=== PATIENT | male | born 1960 | race Caucasian/White ===

== ENCOUNTER 2024-11-01 10:21 | Inpatient (IN) | payer BC, SELFPAY ==
[2024-11-01] VITALS (22 sets, daily range): BP systolic 127–180; BP diastolic 67–134; BMI 39.1; BMI 39.3
[2024-11-01] MEDS: ASPIRIN 325 MG PO (07:52)
--- NOTE | 2024-11-01 08:04 | ED.GENMED ---
History of Present Illness
<Chente Howell Jr., PA-C - Last Filed: 11/01/24 09:56>
General
Chief Complaint: Chest Pain
Source: patient
Exam Limitations: none
Time Seen by Provider: 11/01/24 07:27
Nursing documentation reviewed up to this point in time: agreed with
History of Present Illness
History of Present Illness:
64-year-old male past medical history of coronary artery disease status post stent roughly 30 years ago when he was in his mid 30s, diabetes and hypertension presenting to the emergency department today with concerns of central chest pressure that
seems to be worse when he lays down and with exertion does have associated nausea but no associated shortness of breath no diaphoresis. He claims that the symptoms feel similar to when he had a heart attack 30 years ago. Denies any recent trauma
surgery immobilization, history of blood clots.
Past History
<Chente Howell Jr., PA-C - Last Filed: 11/01/24 09:56>
Past History
ED Past Medical History: None
ED Past Surgical History: None
Review of Systems
<Chente Howell Jr., PA-C - Last Filed: 11/01/24 09:56>
Review of Systems
Allergies reviewed?: Yes
All Other Systems: ROS reviewed and negative except as documented in HPI and ROS
Phy Exam
<Chente Howell Jr., PA-C - Last Filed: 11/01/24 09:56>
Physical Exam
Physical Exam:
GENERAL: Alert , in no apparent distress
EYE: pupils equal and reactive
NECK: Supple, no significant adenopathy.
ENT: o/p clr, mmm.
CARDIAC: Regular rate and rhythm .
LUNGS: Clear breath sounds bilaterally, no acute respiratory distress, no wheezes/rales/rhonchi
ABDOMEN: Soft, without focal tenderness, no r/g, no cvat
NEUROLOGICAL: Alert and oriented, no focal neuro deficits
SKIN: Warm and dry, skin intact.
MUSCULOSKELETAL: No edema, well perfused.
PSYCH: Normal and appropriate interaction.
Scores
<Chente Howell Jr., PA-C - Last Filed: 11/01/24 09:56>
Heart Score for Chest Pain Patients
STEMI patient?: No
History: Highly Suspicious
ECG: Significant ST-Depression
Age: >45 - <65 years
Risk Factors: >/= 3 Risk Factors or History of CAD
Troponin: >1 - <3 x Normal Limit
Heart Score for Chest Pain Patients: 8
Heart Score Risk: 72.7 % MACE over next 6 weeks
Course
<Chente Howell Jr., PA-C - Last Filed: 11/01/24 09:56>
Orders/Labs/Results
Orders:
Orders
11/01/24 07:08
EKG [Electrocardiogram (*1)] Urgent
Reason for Study: Chest Pain
EKG- Treatment ONCE
11/01/24 07:35
Aspirin 325 mg PO NOW STA
11/01/24 07:36
CR Chest - 2 Views Urgent
Comment:
Reason For Exam: CP
11/01/24 07:47
Complete Blood Count/With Diff Urgent
Comprehensive Metabolic Panel Urgent
Magnesium Urgent
Troponin I Urgent
11/01/24 08:38
Heparin 4,000 units IV NOW STA
Nursing to Place Non Medication Order As Directed
Physician Order: PTT 6 hours after initial start of Heparin infusion
Above order entered?: Yes
11/01/24 08:39
Electrocardiogram (*1) Stat
Comment: ALREADY DONE IN ED
11/01/24 08:44
PTT Urgent
Comment: Obtain baseline before beginning heparin infusion if not already collected
11/01/24 08:45
Heparin 62075 Units/250 ml 25,000 units in 250 ml IV PER PROTOCOL
Weight to be used for heparin protocol in kilograms (kg):: 119.9
Protocol:: Cardiac Tx/Acute Coronary
PTT Goal Range to be used:: PTT 73 to 111 seconds
Order type:: Initial
INITIAL Infusion Dose (UNITS/KG/hr) & then follow protocol:: 15 units/kg/hr
Infusion Dose in UNITS/hr & then follow protocol (UNITS/hr):: 1,500
INFUSION RATE in mL/hr & then follow protocol (mL/hr):: 15
PTT less than or equal to 64 seconds:: Increase rate by 200 units/hr (+ 2 mL/hr)
PTT 64.1 to 72.9 seconds:: Increase rate by 100 units/hr (+ 1 mL/hr)
PTT 73 to 111 seconds:: Target Range. No change in rate.
PTT 111.1 to 130.9 seconds:: Decrease rate by 100 units/hr (- 1 mL/hr)
PTT 131 to 199.9 seconds:: HOLD for 1 hr. Then decrease rate by 200 units/hr (- 2 mL/hr)
PTT greater than or equal to 200 seconds:: HOLD for 2 hrs & Notify Provider. Then decrease by 200 units/hr (-
2 mL/hr)
Lab follow-up:: Each change, PTT q6h until 2 consecutive are therapeutic. Then PTT
daily.
11/01/24 08:47
Heparin 18244 Units/250 ml 25,000 units in 250 ml .ROUTE .STK-MED
11/01/24 09:44
Admit/Transfer Patient As Directed
Co-Sign Provider:
Level of Care: Inpatient admission
Assign to:: IVU
Physician / Group: Dr. Grissom
Diagnosis: NSTEMI
Reason for Hospitalization: NSTEMI
Expected length of stay greater than two midnights?: Yes
ELOS- Estimated Length of Stay in days: 3
I certify the patient meets the requirements for IP care: Yes
11/01/24 09:46
Code Status As Directed
Resuscitation Status: Full Code
11/01/24 15:00
PTT Urgent
Abnormal Lab Results
11/01/24
07:47
WBC 11.2 H 10^3/uL
(4.8-10.8)
MCV 79.2 L fL
(80.0-94.0)
MCH 25.7 L pg
(27.0-31.0)
MCHC 32.4 L g/dL
(33.0-37.0)
RDW 15.8 H %
(11.5-14.5)
Abs Immat Gran (auto) 0.1 H 10^3/uL
(0-0.05)
Absolute Neuts (auto) 9.0 H 10^3/uL
(1.4-6.5)
Absolute Lymphs (auto) 1.1 L 10^3/uL
(1.2-3.4)
Absolute Monos (auto) 0.8 H 10^3/uL
(0.1-0.6)
Neutrophils % 80.6 H %
(42.2-75.2)
Lymphocytes % 9.9 L %
(20.5-51.1)
Chloride 97 L mmol/L
(98-107)
Glucose 167 H mg/dl
(70-99)
Magnesium 1.5 L mg/dl
(1.6-2.3)
Total Bilirubin 2.3 H mg/dl
(0.2-1.3)
Alkaline Phosphatase 138 H U/L
(38-126)
Troponin I 0.135 H* ng/ml
11/01/24 07:47
11/01/24 07:47
Vital Signs
Initial and Last Documented VS:
Initial Vital Signs
Temp Pulse Resp BP Pulse Ox
98.4 F 86 16 169/79 95
11/01/24 07:12 11/01/24 07:12 11/01/24 07:12 11/01/24 07:12 11/01/24 07:12
Last Documented Vital Signs
Temp Pulse Resp BP Pulse Ox
98.4 F 74 19 146/82 96
11/01/24 07:12 11/01/24 09:00 11/01/24 09:00 11/01/24 09:00 11/01/24 09:00
<Brenda Hollingsworth MD - Last Filed: 11/01/24 09:32>
Orders/Labs/Results
Orders:
Orders
11/01/24 07:08
EKG [Electrocardiogram (*1)] Urgent
Reason for Study: Chest Pain
EKG- Treatment ONCE
11/01/24 07:35
Aspirin 325 mg PO NOW STA
11/01/24 07:36
CR Chest - 2 Views Urgent
Comment:
Reason For Exam: CP
11/01/24 07:47
Complete Blood Count/With Diff Urgent
Comprehensive Metabolic Panel Urgent
Magnesium Urgent
Troponin I Urgent
11/01/24 08:38
Heparin 4,000 units IV NOW STA
Nursing to Place Non Medication Order As Directed
Physician Order: PTT 6 hours after initial start of Heparin infusion
Above order entered?: Yes
11/01/24 08:39
Electrocardiogram (*1) Stat
Comment: ALREADY DONE IN ED
11/01/24 08:44
PTT Urgent
Comment: Obtain baseline before beginning heparin infusion if not already collected
11/01/24 08:45
Heparin 27060 Units/250 ml 25,000 units in 250 ml IV PER PROTOCOL
Weight to be used for heparin protocol in kilograms (kg):: 119.9
Protocol:: Cardiac Tx/Acute Coronary
PTT Goal Range to be used:: PTT 73 to 111 seconds
Order type:: Initial
INITIAL Infusion Dose (UNITS/KG/hr) & then follow protocol:: 15 units/kg/hr
Infusion Dose in UNITS/hr & then follow protocol (UNITS/hr):: 1,500
INFUSION RATE in mL/hr & then follow protocol (mL/hr):: 15
PTT less than or equal to 64 seconds:: Increase rate by 200 units/hr (+ 2 mL/hr)
PTT 64.1 to 72.9 seconds:: Increase rate by 100 units/hr (+ 1 mL/hr)
PTT 73 to 111 seconds:: Target Range. No change in rate.
PTT 111.1 to 130.9 seconds:: Decrease rate by 100 units/hr (- 1 mL/hr)
PTT 131 to 199.9 seconds:: HOLD for 1 hr. Then decrease rate by 200 units/hr (- 2 mL/hr)
PTT greater than or equal to 200 seconds:: HOLD for 2 hrs & Notify Provider. Then decrease by 200 units/hr (-
2 mL/hr)
Lab follow-up:: Each change, PTT q6h until 2 consecutive are therapeutic. Then PTT
daily.
11/01/24 08:47
Heparin 52180 Units/250 ml 25,000 units in 250 ml .ROUTE .STK-MED
11/01/24 09:44
Admit/Transfer Patient As Directed
Co-Sign Provider:
Level of Care: Inpatient admission
Assign to:: IVU
Physician / Group: Dr. Grissom
Diagnosis: NSTEMI
Reason for Hospitalization: NSTEMI
Expected length of stay greater than two midnights?: Yes
ELOS- Estimated Length of Stay in days: 3
I certify the patient meets the requirements for IP care: Yes
11/01/24 09:46
Code Status As Directed
Resuscitation Status: Full Code
11/01/24 15:00
PTT Urgent
Abnormal Lab Results
11/01/24
07:47
WBC 11.2 H 10^3/uL
(4.8-10.8)
MCV 79.2 L fL
(80.0-94.0)
MCH 25.7 L pg
(27.0-31.0)
MCHC 32.4 L g/dL
(33.0-37.0)
RDW 15.8 H %
(11.5-14.5)
Abs Immat Gran (auto) 0.1 H 10^3/uL
(0-0.05)
Absolute Neuts (auto) 9.0 H 10^3/uL
(1.4-6.5)
Absolute Lymphs (auto) 1.1 L 10^3/uL
(1.2-3.4)
Absolute Monos (auto) 0.8 H 10^3/uL
(0.1-0.6)
Neutrophils % 80.6 H %
(42.2-75.2)
Lymphocytes % 9.9 L %
(20.5-51.1)
Chloride 97 L mmol/L
(98-107)
Glucose 167 H mg/dl
(70-99)
Magnesium 1.5 L mg/dl
(1.6-2.3)
Total Bilirubin 2.3 H mg/dl
(0.2-1.3)
Alkaline Phosphatase 138 H U/L
(38-126)
Troponin I 0.135 H* ng/ml
11/01/24 07:47
11/01/24 07:47
Vital Signs
Initial and Last Documented VS:
Initial Vital Signs
Temp Pulse Resp BP Pulse Ox
98.4 F 86 16 169/79 95
11/01/24 07:12 11/01/24 07:12 11/01/24 07:12 11/01/24 07:12 11/01/24 07:12
Last Documented Vital Signs
Temp Pulse Resp BP Pulse Ox
98.4 F 74 19 146/82 96
11/01/24 07:12 11/01/24 09:00 11/01/24 09:00 11/01/24 09:00 11/01/24 09:00
<Chente Howell Jr., PA-C - Last Filed: 11/01/24 09:56>
MDM/Problems Addressed
MDM/Problems Addressed:
64-year-old male presenting to the emergency department with concerns of central chest pain over the past 2 days that has been intermittent but worse with exertion. Associated nausea no diaphoresis or shortness of breath. He claims that the this
does feel similar to when he had a heart attack 30 years ago.
Patient was given an aspirin on arrival here. He was then asymptomatic. Troponin came back positive. EKG reviewed with some concerning features of somewhat diffuse ST depressions as well as a potential elevation in aVR cardiology was immediately
consulted. Patient started on heparin was seen by cardiology and will be admitted for cath.
<Chente Howell Jr., PA-C - Last Filed: 11/01/24 09:56>
*Pulse Oximetry
SaO2: 95
Oxygen Mode of Delivery: Room air
Patient hypoxic: no (95)
*Critical Care Note
Total Time (30-74mins, 75-104mins- exclusive of procedures): Not Applicable
ED Attending Note
<Chente Howell Jr., PA-C - Last Filed: 11/01/24 09:56>
-
Portions of this chart may have been created with voice recognition software.� Occasional wrong word or��sound alike� substitutions may have occurred due to the inherent limitations of voice recognition software.
<Brenda Hollingsworth MD - Last Filed: 11/01/24 09:32>
ED Attending Note
Patient seen and examined by attending physician: Yes
I performed the substantive portion of visit, reviewed & personally made and approve the management plan that is documented in note by myself or FRANCIE.: Yes
ED Attending Note:
64-year-old male who has complaints of intermittent episodes of chest discomfort over the last 2 d. States he woke at 5 AM and the pain has been persistent ever since which prompted his visit here. He denies back/neck/leg pain, no sob, no
n/v/diaphoresis. Here, intial ECG with St dep noted laterally...now resolved on ecg #2. Pt denies pain/discomfort or any sxs at this time. Given asa, heparin ordered, nitro at bedside, cards aware and will see in c/s for suspected usa. Pt aware.
Discharge Plan
Departure
Patient Disposition: Admit
Date of Disposition: 11/01/24
Time of Disposition: 09:54
Admit to: Telemetry
Admit to doctor: Praveena
Presentation/result/management discussed w/ accepting MD/DO: Cardiology
Patient with high blood pressure during this ER visit?: No
Condition: Fair
Covid-19: Not Applicable
Discharge Problem:
Non-ST elevation MD (NSTEMI)
Prescriptions:
No Action
atorvastatin [Lipitor] 80 MG tablet
80 mg PO QPM
metoprolol succinate 50 MG tablet extended release 24 hr
50 mg PO DAILY
isosorbide mononitrate 30 MG tablet extended release 24 hr
30 mg PO DAILY
aspirin 81 MG tablet,delayed release (DR/EC)
81 mg PO DAILY
esomeprazole magnesium 40 MG capsule,delayed release(DR/EC)
40 mg PO DAILY
hydrochlorothiazide 25 MG tablet
25 mg PO DAILY
losartan [Cozaar] 100 MG tablet
100 mg PO DAILY
metformin 500 MG tablet extended release 24 hr
1,000 mg PO BID
potassium chloride 10 mEq Tablet Extended Release
10 meq PO DAILY
amlodipine [Norvasc] 5 mg Tablet
5 mg PO DAILY
Trulicity 0.75 mg/0.5 mL Pen Injector
0.75 mg SC WE
Referrals:
UNKNOWN - PT DOES,NOT KNOW [Family Provider]
Interventions
Interventions:
*Risk Screen - Suicide Last Done: 11/01/24 07:12
*General Assessment Last Done: 11/01/24 09:04
*Neglect/Abuse Screening Last Done: 11/01/24 07:12
*ED COVID-19 Vaccine History Last Done: 11/01/24 09:04
ED- Cardiac Assessment Last Done: 11/01/24 07:56
Discharge Date and Time
Print Language: WOLOF
[2024-11-01 08:07] LABS: Hematocrit 40.4 % (39.0-52.0); Hemoglobin 13.1 g/dL (13.0-18.0); Mean Corp Hgb Conc. 32.4 g/dL (33.0-37.0); Mean Corpuscular Volume 79.2 fL (80.0-94.0); Nucleated Red Blood Cells % 0 % (-); Platelet Count 211 10^3/uL (130-400); Red Cell Dist. Width 15.8 % (11.5-14.5)
[2024-11-01 08:12] LABS: ALT (SGPT) 17 U/L (0-50); AST (SGOT) 29 U/L (17-59); Albumin 4.0 g/dl (3.5-5.0); Alkaline Phosphatase 138 U/L (38-126); Blood Urea Nitrogen 17 mg/dl (9-20); Calcium 9.1 mg/dl (8.4-10.2); Carbon Dioxide 30 mmol/L (22-30); Chloride 97 mmol/L (98-107); Glucose 167 mg/dl (70-99); Magnesium 1.5 mg/dl (1.6-2.3); Potassium 3.5 mmol/L (3.5-5.1); Sodium 135 mmol/L (135-145); Total Protein 7.0 g/dl (6.3-8.2); eGFR > 60.00
[2024-11-01 08:24] LABS: Troponin I 0.135 ng/ml
[2024-11-01] MEDS: HEPARIN 4000 UNITS IV (08:45)
[2024-11-01] MEDS: HEPARIN 25000 UNITS/250 ML IV (08:54)
[2024-11-01 09:08] LABS: APTT 30.2 Sec (23.4-35.0)
--- NOTE | 2024-11-01 09:12 | HPS.HSE ---
Addendum entered and electronically signed by Leonardo Grissom MD 11/01/24 10:01:
I saw and examined the patient.
The FOOD TECHNICIAN's note was reviewed and I agree with the note.
Comment:
64-year-old man with CAD (POBA of diagonal branch in 1997, RCA stent 1998), hypertension, hyperlipidemia, diabetes, obesity, and HOLLI who presents for stuttering chest pain since Friday. He thought it might be due to indigestion. Was worse when
he had to walk up a set of bleachers at a field hockey game. Associated with nausea. Occurred again at 3 AM last night and he drove himself to the ER. ECG on my review shows ST elevation in aVR with reciprocal ST depressions in the inferolateral
leads.
Physical exam notable for regular rate and rhythm, no murmurs, clear lungs, no lower extremity edema
Labs notable for troponin 0.135
NSTEMI: He has been given aspirin 325 mg and is currently on a heparin drip. He is chest pain free at this time. Plan for left heart catheterization today. Please keep NPO. Follow-up lipids and A1c.
Original Note:
Family Physician
-
Family Physician: Dr. Goetz
Chief Complaint
-
chest discomfort
History of Present Illness
64 y/o male with CAD with hx [place] 1997 with balloon angio of a dig, then RCA stenting 1998, hypertension, dyslipidemia, DM2, obesity, and HOLLI (reports no CPAP since he had trouble tolerating). He is here for intermittent midsternal chest discomfort
since Friday, which felt like his previous angina. It has come and gone at least 6-8 times and is associated with nausea. There is no SOB. It does not seem to be related to any particular activity. He is CP free at the time of my assessment. EKG
shows ST/T wave abnormalities anteriorly and laterally (improved on most recent EKG). Troponin 0.135. He is CP free and in no distress at the time of my assessment.
Medical History
Past Medical History
Past Medical History: Reports CAD, HTN, Hypercholesterolemia, NIDDM, [place] and Other (as above)
Past Surgical History: Reports Orthopedic (right shoulder scope)
Social History
Tobacco: Former Smoker
Personal:
Family History
Family History: Hypertension
Allergies / Home Medications
Allergies reflects when Allergies were last updated in [facility].
Home Medications with original date entered in [facility]
Allergy/Medication List:
Allergies: ACEI, PCN
Medications:
ASA 81 mg PO daily
amlodipine 5 mg P daily
Lipitor 80 mg PO daily
Trulicity 0.75 mg SC WE
Esomeprazole 40 mg PO daily
HCTZ 25 mg PO daily
isosorbide 30 mg PO daily
losartan 100 mg po daily
metformin 1000 mg PO BID
metoprolol succinate 50 mg PO daily
potassium chloride 10 meq PO daily
Review of Systems
-
History Source: Patient
A 12 point ROS was completed and negative except as noted: Yes
Cardiac: Reports Chest Pain
Abdomen/GI: Reports Nausea
Physical Exam
Vital Signs
Vital Signs
Temp Pulse Resp BP Pulse Ox
98.4 F 74 19 146/82 96
11/01/24 07:12 11/01/24 09:00 11/01/24 09:00 11/01/24 09:00 11/01/24 09:00
Physical Exam
General: Well Developed, Well Nourished and No Apparent Distress
HEENT: NormoCephalic and Anicteric
Respiratory: Clear and Non Labored Respirations
Cardiac: Regular Rhythm and Peripheral Edema (mild BLE edema)
GI: Normal Bowel Sounds
Skin: Warm and Dry
Neuro: AO x 3
Psych: Calm
Laboratory Results
-
11/01/24 07:47
11/01/24 07:47
Laboratory Results
Total Bilirubin 2.3 mg/dl (0.2-1.3) H 11/01/24 07:47
AST 29 U/L (17-59) 11/01/24 07:47
ALT 17 U/L (0-50) 11/01/24 07:47
Alkaline Phosphatase 138 U/L (38-126) H 11/01/24 07:47
Troponin I 0.135 ng/ml H* 11/01/24 07:47
Data Reviewed
-
Diagnostic Radiology: Report Reviewed by me (CXR: no acute disease of chest)
Medical Tests (Nuc Med, Echo, EKG etc): Report Reviewed by me (Echo 05/24/22: Normal left ventricular systolic function. Left ventricular ejection fraction is 60-65%. Moderate concentric left ventricular hypertrophy. No significant valvular
disease. )
Lab Data: Labs Reviewed by me
Impression/Plan
-
IMPRESSION/PLAN:
NSTEMI:
-this diagnosis is threat to life
-CP free currently
-Full dose ASA given, continue 81 mg daily
-Continue IV heparin, which requires intensive monitoring
-medical laboratory technologist today
-trend trops, EKG's
-check lipids, HGBA1C
-echo
CAD with remote hx RCA stenting:
-continue ASA, statin, BB, isosorbide
-plan as above
HTN:
-severely elevated on arrival, but now stabilized
-continue meds and monitor. He reports this has been stable.
DM2:
-hold metformin for cath
-SSI while inpatient
HLD:
-continue statin and check lipids
Scores
HERBIE for NSTEMI
Age >/= 65: No
>/=3 CAD risk factors-HTN,High Chol,Fam hx CAD,DM,Smoker: Yes
Known CAD (stenosis >/=50%): Yes
ASA use in past 7 days: Yes
Severe angina (>/= 2 episodes in 24 hrs): Yes
EKG ST Changes >/= 0.5mm: Yes
Positive cardiac marker: Yes
Score: 6
Risk at 14 days-mortality, new/recurrent [place], severe ischemia: High Risk- 41% Risk at 14 days- all cause mortality, new or recurrent [place], or severe recurrent ischemia requiring urgent revascularization
[2024-11-01 12:21] LABS: Glycohemoglobin (HgbA1c) 6.2 % (4.0-5.6)
--- NOTE | 2024-11-01 12:41 | PTCARENOTE ---
Patient admitted from the ED with Nstemi, IV heparin infusing at 1500 units/hr. Patient is currently pain free, NPO for cardiac cath later today. Oriented to the room and plan of care, admission assessment completed, call downey in reach.
[2024-11-01 13:06] LABS: Troponin I 1.750 ng/ml
[2024-11-01 13:30] LABS: Glucose - Point of Care 85 mg/dl (70-99)
--- NOTE | 2024-11-01 15:51 | CM ---
Chart reviewed. Patient is independent of ADLS, lives with his in a 2 STH, 1 DG, 0 DME. Plan is for the patient to return home. CM to follow
[2024-11-01 16:47] LABS: APTT 71.0 Sec (23.4-35.0)
[2024-11-01 17:36] LABS: ACT-LR - POC 303 Seconds (116-155)
--- NOTE | 2024-11-01 18:13 | ITS.CL.PN ---
[employer] - Procedure Note
Procedure
Procedure Note:
CARDIAC CATHETERIZATION REPORT
Date of Procedure: 11/01/2024
Referring: Dr. Jose Grissom MD
Indication: NSTEMI
PROCEDURE(S)
1. left heart catheterization
2. coronary angiography
3. IVUS RCA
4. PCI with JULISSA to RCA
ACCESS: 6F right radial artery (closure: radial band)
CATHETERS
1. 6F JR4
2. 6F JL3.5
3. 6F JR4 guide
MODERATE SEDATION: 45 minutes of moderate sedation was utilized. An independent medical tech was present to assist with and help manage the patient's level of consciousness and physiologic status.
HEMODYNAMIC DATA
LV 158/8 (EDP 17) mmHg
AO 165/84 (mean 111) mmHg
CORONARY ANGIOGRAPHY
Dominance: right
LM: Large with mild disease
LAD: Large vessel giving rise to a moderate caliber D1, small D2, and small D3. There is diffuse mild to moderate disease throughout and a segment of severe 70 to 80% stenosis in the distal LAD just after the takeoff of the third diagonal. This
vessel appears to be less than 2 mm in caliber. There is HERBIE-3 flow to the apex
LCx: Small vessel giving rise to several small OM branches. There is mild diffuse disease.
RCA: Very large vessel giving rise to a large RPDA and large RPL branch. There is a stent in the mid RCA with moderate ISR and a focal severe 90% distal stent edge stenosis that is the likely culprit for the patient's presentation. There is diffuse
moderate to severe disease in the distal portion of the RPDA and RPL.
PCI with JULISSA to RCA
Heparin was given to achieve ACT greater than 300. The right coronary artery was engaged with a JR4 guide catheter and a Runthrough wire was placed in the distal RCA. Initial lesion preparation was performed with a 2.5 mm semicompliant balloon with
full expansion. IVUS was performed demonstrating a 4 to 4.5 mm reference vessel diameter with significant positive remodeling and what appeared to be concentric fibrocalcific disease throughout the vessel. To ensure stent expansion, further lesion
preparation was performed with a 4.0 mm NC balloon taken to nominal pressure. Angiography demonstrated a dissection extending distally from the site of most severe stenosis. The healthy landing zone distal to the dissection was smaller,
approximately 3.5 mm. Stenting was then performed with a 3.5 x 38 mm [place] frontier drug-eluting stent covering the dissection back proximally overlapped proximally with a 4.0 x 18 mm [place] frontier drug-eluting stent. The entire stented segment
sparing the distal edge was postdilated with a 4.0 NC balloon taken to 20 yasmeen throughout and 16 yasmeen of the proximal stent edge. Final IVUS demonstrated excellent stent apposition with mild relative underexpansion within the segment of previously
placed stent with MLA greater than 8 mm�. There is no evidence of edge dissection. The wire and guide were removed and a TR band placed. The patient was loaded with 180 mg of ticagrelor.
RADIATION: dose 832 mGy; DAP 44.6 Gy*cm2; fluoroscopy time 9.8 min
CONCLUSIONS
1. Mildly elevated LV filling pressure and no aortic stenosis
2. Obstructive coronary artery disease as described with culprit 90% mid RCA stenosis
3. IVUS-guided PCI with overlapping 3.5 x 38 mm and 4.0 x 18 mm [place] frontier drug-eluting stents postdilated to high-pressure with a 4.0 mm NC balloon
RECOMMENDATIONS
1. DAPT with aspirin and ticagrelor for at least 1 year
2. Aggressive secondary prevention of coronary artery disease with goal LDL less than 55
3. Check TTE
4. Cardiac rehab
Copy to: Dr. Jose Grissom MD (tax evaluator); Dr. Marco Goetz MD (PCP)
Signed: Hans Blackman MD, PhD
[2024-11-01 18:19] LABS: Glucose - Point of Care 108 mg/dl (70-99)
[2024-11-01] MEDS: LIPITOR 80 MG PO (18:19)
--- NOTE | 2024-11-01 18:29 | PTCARENOTE ---
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 Radial band in place with a strong radial pulse palpated and pulse ox of 93% on the right hand. Reinforced post cath restrictions, at the bedside and just finished with
speaking with Dr. Blackman on the phone re: cath results. Post EKG done, monitoring VS, call downey in reach.
--- NOTE | 2024-11-01 19:54 | PTCARENOTE ---
Received pt at change of shift, at bedside. R radial band site clean and intact, good pulse and circulation. Bp remains high on the 170/80's since pt back from blood and plasma laboratory assistant, asymptomatic, SR on the monitor, HR 70's, Dr. Blackman made aware and
responded 'will not act on what is likely a long standing HTN, if asymptomatic'. Call downey within reach.
[2024-11-01 22:24] LABS: Glucose - Point of Care 154 mg/dl (70-99)
[2024-11-02] VITALS (13 sets, daily range): BP systolic 134–179; BP diastolic 74–87; BMI 38.6
[2024-11-02 04:11] LABS: Hematocrit 41.2 % (39.0-52.0); Hemoglobin 13.8 g/dL (13.0-18.0); Mean Corp Hgb Conc. 33.5 g/dL (33.0-37.0); Mean Corpuscular Volume 77.9 fL (80.0-94.0); Platelet Count 211 10^3/uL (130-400); Red Cell Dist. Width 15.7 % (11.5-14.5)
[2024-11-02 04:36] LABS: Blood Urea Nitrogen 14 mg/dl (9-20); Calcium 9.2 mg/dl (8.4-10.2); Carbon Dioxide 27 mmol/L (22-30); Chloride 97 mmol/L (98-107); Estimated Creatinine Clearance 116 ml/min; Glucose 121 mg/dl (70-99); HDL Cholesterol 34 mg/dl; LDL Cholesterol, Calculated 71 mg/dl; Potassium 3.7 mmol/L (3.5-5.1); Sodium 136 mmol/L (135-145); Very Low Density Lipoprotein 29 mg/dl (0-30); eGFR > 60.00
[2024-11-02 04:49] LABS: Troponin I 3.810 ng/ml
[2024-11-02 07:09] LABS: Troponin I 3.220 ng/ml
[2024-11-02 07:36] LABS: Glucose - Point of Care 127 mg/dl (70-99)
--- NOTE | 2024-11-02 07:46 | W.PN.CARDCBS ---
Addendum entered and electronically signed by Hans Blackman MD 11/02/24 13:55:
Patient seen and examined by me. I agree with the note by GERA Jon.
Patient post PCI to RCA, doing well. Cath site clean without hematoma. Labs stable. Rare PVCs on tele.
Started spironolactone given elevated blood pressures despite three-agent anti-hypertensive regimen.
Will plan for labs in 1 week, cardiac rehab, aggressive risk factor modification.
Cont. DAPT for approximately 1 year.
Will follow with Dr. Grissom as outpatient.
Original Note:
Today's Communication / Plan
-
cardiac rehab consult
add spironolactone
labs in 1 week
home today
Impression / Plan
-
PCP: Marco Goetz MD
CDY: Leonardo Grissom MD
64 y/o, with CAD ([place] w/POBA of diagonal branch in 1997, RCA stent 1998), presents for stuttering chest pain since Friday, worse with exertion, with associated nausea. Woke him at 3AM and he drove himself to ER. EKG with ST elevations in aVR with
reciprocal ST depressions inferolaterally. First troponin 0.135, loaded with aspirin, heparin gtt and brought to [facility].
[facility] 11/01- 70-80% distal LAD
mid RCA stent with moderate ISR
focal severe 90% distal stent edge stenosis- s/p 2 overlapping JULISSA
LVEDP 17
IMPRESSION/PLAN:
NSTEMI/CAD w/prior [place] 1997 w/diag POBA, RCA stent 1998
s/p mRCA in stent restenosis, s/p PCI w/2 overlapping JULISSA
radial cath site stable
tele- NSR w/LAFB as before, rare PVC, no VT
troponin peak 3.81
echo results noted- preserved EF 57%, mild-mod LVH
DAPT w/asa, brilinta- cost affordable per CM
continue metoprolol, losartan, isosorbide as before
cardiac rehab consult
followup at [facility] in 2 weeks as scheduled
home today
HTN- elevated 160-170s
continue amloidpine 5/d, hctz 25/d, losartan 100/d, metoprolol xl 50/d
will add spironolactone 25/d and check BMP in 1 week
HLD- lipid profile noted
continue high intensity statin w/atorvastatin 80/d
DM- hold metformin 48h post dye load
creat stable this AM
Morbid obesity- weight loss strongly encouraged
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
Subjective
Date of Service: November 02, 2024
Denies cp/palps/dyspnea
oob ambulating
radial site without pain
Objective
Labs:
11/02/24 03:15
11/02/24 03:15
Labs
Hgb 13.8 g/dL (13.0-18.0) 11/02/24 03:15
Hct 41.2 % (39.0-52.0) 11/02/24 03:15
Plt Count 211 10^3/uL (130-400) 11/02/24 03:15
APTT 71.0 Sec (23.4-35.0) H 11/01/24 16:22
Sodium 136 mmol/L (135-145) 11/02/24 03:15
Potassium 3.7 mmol/L (3.5-5.1) 11/02/24 03:15
BUN 14 mg/dl (9-20) 11/02/24 03:15
Creatinine 0.8 mg/dL (0.7-1.3) 11/02/24 03:15
Glucose 121 mg/dl (70-99) H 11/02/24 03:15
Troponins
11/01/24 11/01/24 11/01/24
07:47 12:25 18:00
Troponin I 0.135 H* 1.750 H* D Cancelled
11/02/24 11/02/24 11/02/24
00:00 03:15 06:30
Troponin I Cancelled 3.810 H* 3.220 H*
Vital Signs and I&O:
Vital Signs
Temp Pulse Resp BP Pulse Ox
98.6 F 76 18 167/85 98
11/02/24 07:39 11/02/24 07:33 11/02/24 07:39 11/02/24 07:33 11/02/24 07:39
Vital Signs
Temp Pulse Resp BP Pulse Ox
98.6 F 76 18 167/85 98
11/02/24 07:39 11/02/24 07:33 11/02/24 07:39 11/02/24 07:33 11/02/24 07:39
Intake & Output
10/31/24 11/01/24 11/02/24 11/03/24
06:59 06:59 06:59 06:59
Intake Total 240 / 240
Output Total 950 / 950
Balance -710 / -710
Physical Exam
Physical Exam
AAOx3, MAEE 5/5
RRR S1 S2 no murmurs
CTA bilat, non labored
soft abd, + bs
right radial cath site without ht/bleeding, non tender
bilat extremties w/palpable distal pulses, no edema
[2024-11-02] MEDS: ASPIR LOW (ENTERIC COATED) 81 MG PO (08:42)
[2024-11-02] MEDS: KCL 20 MEQ PO (08:42)
[2024-11-02] MEDS: IMDUR (EXTENDED RELEASE) 30 MG PO (08:43)
[2024-11-02] MEDS: COZAAR 100 MG PO (08:43)
[2024-11-02] MEDS: BRILINTA 90 MG PO (08:43)
[2024-11-02] MEDS: KCL 10 MEQ PO (08:43)
[2024-11-02] MEDS: TOPROL XL 50 MG PO (08:44)
[2024-11-02] MEDS: PROTONIX 40 MG PO (08:44)
[2024-11-02] MEDS: ORETIC 25 MG PO (08:44)
[2024-11-02] MEDS: FLUSH (NSS) 1 FLUSH IV (08:44)
[2024-11-02] MEDS: NORVASC 5 MG PO (08:44)
[2024-11-02] MEDS: ALDACTONE 25 MG PO (08:46)
--- NOTE | 2024-11-02 09:02 | PTCARENOTE ---
Patient oob this AM, denies any chest pain or sob, right wrist dressing is dry and intact with no signs of hematoma and a strong radial pulse palpated. Patient hoping to go home this afternoon.
--- NOTE | 2024-11-02 09:48 | CM ---
Pricing on Ticagrelor is $10 through the patient's [facility]. It is in stock. Notified patient and Kimberley Rosales
--- NOTE | 2024-11-02 10:37 | W.DS.TRANS ---
DC Summary - [employer]
-
Discharge Instructions:
Discharge Diagnosis/Procedures NSTEMI, s/p angioplasty and stent x2 to Right
Coronary artery
Diet Low Cholesterol,Diabetic, Carb Controlled
Driving Restrictions No driving for 24 hours
Blood Work BMP in 1 week- results to Dr. Grissom
Other Services Cardiac Rehab
Instructions:
Stand-Alone Forms: DC Instructions- Cath/EP Lab
Changes to Home Medications: Yes
Discharge Medications:
DC Medications w/original date entered in [facility]
aspirin 81 mg tablet,delayed release 81 mg PO DAILY Blood Clot Prevention/Tx 03/17/21
atorvastatin 80 mg tablet (Lipitor) 80 mg PO QPM High Cholesterol 03/17/21
esomeprazole magnesium 40 mg capsule,delayed release 40 mg PO DAILY Gastrointestinal Issue 03/17/21
hydrochlorothiazide 25 mg tablet 25 mg PO DAILY Fluid Retention/Swelling 03/17/21
isosorbide mononitrate 30 mg tablet,extended release 24 hr 30 mg PO DAILY Heart Disease/Condition 03/17/21
losartan 100 mg tablet (Cozaar) 100 mg PO DAILY Blood Pressure 03/17/21
metformin 500 mg tablet,extended release 24 hr 1,000 mg PO BID Diabetes 03/17/21
metoprolol succinate 50 mg tablet,extended release 24 hr 50 mg PO DAILY Blood Pressure 03/17/21
amlodipine 5 mg tablet (Norvasc) 5 mg PO DAILY Blood Pressure 11/01/24
dulaglutide 0.75 mg/0.5 mL subcutaneous pen injector (Trulicity) 0.75 mg SC WE Diabetes 11/01/24
potassium chloride 10 mEq tablet,extended release 10 meq PO DAILY Supplement 11/01/24
spironolactone 25 mg tablet 25 mg PO DAILY #30 tabs 11/02/24
ticagrelor 90 mg tablet 90 mg PO BID #60 tabs 11/02/24
Home Medication Changes
NEW: ticagrelor, spironolactone
Pending Results: No
--- NOTE | 2024-11-02 12:24 | PTCARENOTE ---
Reviewed discharge instructions including follow up appointments, new medications, need for BMP and post cath activity restrictions and he states his understanding. Patient discharged home with his . Radial dressing removed by Dr. Blackman, no
bleeding or signs of hematoma noted.
== END 2024-11-02 12:26 | disposition home or self-care (01) | DRG 322 ==
LOC: IVU 10:21
PROVIDERS: Nurse Practitioner; Physician Assistant; Student in an Organized Health Care Education/Training Program; ADMITTING PHYSICIAN Student in an Organized Health Care Education/Training Program; EMERGENCY PHYSICIAN Emergency Medicine
PROC: 4A023N7 Measurement of Cardiac Sampling and Pressure, Left Heart, Percutaneous Approach (ICD-10-PCS; 2024-11-01)
PROC: 027035Z Dilation of Coronary Artery, One Artery with Two Drug-eluting Intraluminal Devices, Percutaneous Approach (ICD-10-PCS; 2024-11-01)
PROC: B2101ZZ Fluoroscopy of Single Coronary Artery using Low Osmolar Contrast (ICD-10-PCS; 2024-11-01)
DX: I21.4 Non-ST elevation (NSTEMI) myocardial infarction (principal); T82.855A Stenosis of coronary artery stent, initial encounter; I25.2 Old myocardial infarction; Y83.1 Surgical operation with implant of artificial internal device as the cause of abnormal reaction of the patient, or of later complication, without mention of misadventure at the time of the procedure; I10 Essential (primary) hypertension; E78.00 Pure hypercholesterolemia, unspecified; E11.9 Type 2 diabetes mellitus without complications; E66.01 Morbid (severe) obesity due to excess calories; G47.33 Obstructive sleep apnea (adult) (pediatric); I25.10 Atherosclerotic heart disease of native coronary artery without angina pectoris; Z79.82 Long term (current) use of aspirin; Z79.899 Other long term (current) drug therapy; I49.3 Ventricular premature depolarization; I44.4 Left anterior fascicular block; Z79.84 Long term (current) use of oral hypoglycemic drugs; Z82.49 Family history of ischemic heart disease and other diseases of the circulatory system; Z87.891 Personal history of nicotine dependence
CPT/HCPCS: 71046; 80048; 80053; 80061; 82962; 83036; 83735; 84484; 85025; 85027; 85347; 85730; 92978; 93005; 93306; 93458; 96374; 96376; 99152; 99153; 99285; C1725; C1753; C1769; C1874; C1894; C9600; Q9950; Q9967

== ENCOUNTER → 2024-11-08 08:38 | Outpatient (REF) | payer BC, SELFPAY ==
[2024-11-08 12:24] LABS: Blood Urea Nitrogen 15 mg/dl (9-20); Calcium 9.0 mg/dl (8.4-10.2); Carbon Dioxide 30 mmol/L (22-30); Chloride 97 mmol/L (98-107); Glucose 117 mg/dl (70-99); Potassium 3.6 mmol/L (3.5-5.1); Sodium 134 mmol/L (135-145); eGFR > 60.00
== END ==
LOC: HWLAB 08:38
PROVIDERS: ATTENDING PHYSICIAN Student in an Organized Health Care Education/Training Program; FAMILY PHYSICIAN Family Medicine
DX: I25.9 Chronic ischemic heart disease, unspecified (principal)
CPT/HCPCS: 36415; 80048

== ENCOUNTER 2024-12-10 10:31 | Outpatient (RCR) | payer BC, SELFPAY ==
[2024-11-25 09:49] LABS: Glucose - Point of Care 98 mg/dl (70-99)
[2024-11-25 10:26] LABS: Glucose - Point of Care 105 mg/dl (70-99)
[2024-11-29 06:34] LABS: Glucose - Point of Care 128 mg/dl (70-99)
[2024-11-29 07:15] LABS: Glucose - Point of Care 151 mg/dl (70-99)
[2024-12-01 06:33] LABS: Glucose - Point of Care 127 mg/dl (70-99)
[2024-12-01 07:21] LABS: Glucose - Point of Care 150 mg/dl (70-99)
[2024-12-03 06:35] LABS: Glucose - Point of Care 119 mg/dl (70-99)
[2024-12-03 07:28] LABS: Glucose - Point of Care 128 mg/dl (70-99)
[2024-12-06 06:25] LABS: Glucose - Point of Care 128 mg/dl (70-99)
[2024-12-06 07:15] LABS: Glucose - Point of Care 121 mg/dl (70-99)
[2024-12-08 06:39] LABS: Glucose - Point of Care 115 mg/dl (70-99)
[2024-12-08 07:36] LABS: Glucose - Point of Care 112 mg/dl (70-99)
== END 2024-12-10 23:59 | disposition home or self-care (01) ==
LOC: CRHB 10:31
PROVIDERS: ATTENDING PHYSICIAN Student in an Organized Health Care Education/Training Program
DX: I25.2 Old myocardial infarction (principal); I21.4 Non-ST elevation (NSTEMI) myocardial infarction (principal); I25.10 Atherosclerotic heart disease of native coronary artery without angina pectoris; Z95.5 Presence of coronary angioplasty implant and graft
CPT/HCPCS: 82962; 93798

== ENCOUNTER 2025-01-05 08:43 | Outpatient (RCR) | payer BC, SELFPAY | END 2025-01-05 23:59 | disposition home or self-care (01) | LOC: CRHB 08:43 | PROVIDERS: ATTENDING PHYSICIAN Student in an Organized Health Care Education/Training Program | DX: I25.10 Atherosclerotic heart disease of native coronary artery without angina pectoris (principal); I25.2 Old myocardial infarction (principal); I21.4 Non-ST elevation (NSTEMI) myocardial infarction; Z95.5 Presence of coronary angioplasty implant and graft | CPT/HCPCS: 93797; 93798 ==